=== PATIENT | male | born 1985 | race Caucasian/White ===

== ENCOUNTER 2025-02-11 04:53 | Emergency (ER) | payer SELFPAY ==
[2025-02-11 04:57] VITALS: BP 128/94
[2025-02-11 05:32] VITALS: BMI 24.5
== END 2025-02-11 06:06 ==
LOC: EMR 04:53
DX: F41.9 Anxiety disorder, unspecified (principal); R41.0 Disorientation, unspecified; R42 Dizziness and giddiness; Z53.21 Procedure and treatment not carried out due to patient leaving prior to being seen by health care provider
CPT/HCPCS: 93005